=== PATIENT | female | born 1950 | race Caucasian/White ===

== ENCOUNTER → 2019-01-31 | Outpatient (CLI) | payer OTHER ==
[~2019-01-31] MED LIST: DESYREL50 MG; IBUPROFEN 400400 M1 PO; IRON159 MG PO; LIBRAX PO; LORTAB 5 MG/5001 TA1 PO; MIRALAX255 GM PO; VALIUM5 MG PO; VITAMINS
== END ==
LOC: RAD 11:42
DX: Z12.31 Encounter for screening mammogram for malignant neoplasm of breast (principal)